=== PATIENT | female | born 1965 | race Caucasian/White ===

== ENCOUNTER 2017-01-18 13:07 | Emergency (ER) | payer MEDICARE, MEDICAID ==
[2017-01-18 13:21] VITALS: BP 85/54
--- NOTE | 2017-01-18 13:52 | UC ---
Abdominal Pain Female HPI - HPI Summary HPI Summary: Patient presents with RLQ pain x 1 week which is intermittent. Denies fevers or back pain. She has down syndrome and takes multiple medications. She has also c/o dizziness and lightheadedness for months. Her senior javascript developer believes it is something with her medications. They were able to call her doctor this morning but was unable to get in soon. She denies aches, fevers, chills or sweats. On arrival, she pinpointed tenderness over the right hip joint and denies abd pain. - History of Current Complaint Chief Complaint: UCGeneralIllness Stated Complaint: LOWER RIGHT ABD PAIN Time Seen by Provider: 01/18/17 13:31 Hx Obtained From: Patient, Family/Fast Food Supervisor ?: No Onset/Duration: Sudden Onset Timing: Intermittent Episodes Lasting: Severity Initially: Moderate Severity Currently: Moderate Pain Intensity: 8 Pain Scale Used: 0-10 Numeric Location: Discrete At: RLQ Radiates: No Aggravating Factor(s): Nothing Alleviating Factor(s): Nothing Associated Signs and Symptoms: Positive: Negative - Risk Factors Ectopic Risk Factor: Maternal Age ^ 30 Allergies/Adverse Reactions: Allergies Allergy/AdvReac Type Severity Reaction Status Date / Time Aloe Allergy Rash Verified 01/18/17 13:15 Penicillins Allergy Rash Verified 01/18/17 13:15 Home Medications: Home Medications Escitalopram Oxalate [Lexapro 10 mg] 10 mg PO DAILY 01/18/17 [History Confirmed 01/18/17] Melatonin 5 mg PO BEDTIME 01/18/17 [History Confirmed 01/18/17] Memantine TAB* [Namenda TAB*] 10 mg PO BID 01/18/17 [History Confirmed 01/18/17] PMH/Surg Hx/FS Hx/Imm Hx Previously Healthy: Yes - Surgical History Surgical History: Yes Surgery Procedure, Year, and Place: open heart, eye surgery, hernia repair - Family History Known Family History: Positive: Unknown - Social History Occupation: Disabled Lives: [facility] Alcohol Use: None Substance Use Type: None Smoking Status (MU): Never Smoked Tobacco - Immunization History Most Recent Influenza Vaccination: [id number] Review of Systems Constitutional: Negative Skin: Negative Eyes: Other - blind ENT: Negative Respiratory: Negative Cardiovascular: Negative Gastrointestinal: Abdominal Pain - RLQ Musculoskeletal: Negative Neurological: Negative Psychological: Negative All Other Systems Reviewed And Are Negative: Yes Physical Exam Triage Information Reviewed: Yes Appearance: Well-Appearing, No Pain Distress, Well-Nourished Vital Signs: Initial Vital Signs Temp 98.3 F 01/18/17 13:15 Pulse 59 01/18/17 13:15 Resp 18 01/18/17 13:15 BP 85/54 01/18/17 13:15 Pulse Ox 98 01/18/17 13:15 ENT Exam: Normal ENT: Positive: Normal ENT inspection, Hearing grossly normal Neck exam: Normal Neck: Positive: Supple, Nontender, No Lymphadenopathy Respiratory Exam: Normal Respiratory: Positive: Chest non-tender, Lungs clear Cardiovascular Exam: Normal Cardiovascular: Positive: RRR Musculoskeletal Exam: Normal Musculoskeletal: Positive: Strength Intact Neurological Exam: Normal Neurological: Positive: Alert Psychological: Positive: Normal Response To Family, Age Appropriate Behavior Skin Exam: Normal Abd Pain Female Course/Dx - Course Course Of Treatment: Patient arrives with CC of RLQ pain x 1 week which is intermittent. She notes to some burning with urination as well. C/o dizziness, lightheadedness, but this has continued for months. Obturator and psoas positive with tenderness over RLQ on palpation. Will send to [facility] for further management and r/o appy. Patient is OK with this and would like to travel by private car. BP low at 85/54, but is otherwise stable. - Differential Dx/Diagnosis Differential Diagnosis: Appendicitis, Bowel Obstruction, Renal Colic, Urinary Tract Infection Provider Diagnoses: RLQ pain - Physician Notification/Consults Instructed by Provider To: Transfer - Transferred to [facility] - private car Discharge - Discharge Plan Condition: Stable Disposition: AGAINST MEDICAL ADVICE Referrals: Mikki Whitt MD [Primary Care Provider] -
== END 2017-01-18 14:00 | disposition left against medical advice (07) ==
LOC: UCCORT 13:07
DX: R10.31 Right lower quadrant pain (principal); R42 Dizziness and giddiness; Q90.9 Down syndrome, unspecified; Z88.0 Allergy status to penicillin
CPT/HCPCS: 99213; G0463